=== PATIENT | female | born 1965 | race Caucasian/White ===

== ENCOUNTER 2017-10-12 07:38 | Emergency (ER) | payer BC ==
[2017-10-12] MEDS ORDERED: SODIUM CHLORIDE 0.9% 1,000 ML IV ONE (07:52)
--- NOTE | 2017-10-12 07:55 | ED Physician Documentation ---
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 She does see a email manager in [place] by Dr. Zachery Kline. She was last cardioverted 2 weeks ago. She is visiting the [place] for [place] and is boating here. She did consume alcohol last night est 4-5 drinks. Review of Systems Constitutional: denies: Fever, Chills, Myalgias Eyes: denies: Decreased vision Ears: denies: Ear pain Nose: denies: Rhinorrhea / runny nose, Congestion Throat: denies: Sore throat Cardiac: reports: Palpitations. denies: Chest pain / pressure Respiratory: denies: Dyspnea, Cough GI: denies: Abdominal Pain, Nausea, Vomiting, Constipation, Diarrhea : denies: Dysuria, Frequency Skin: denies: Rash Musculoskeletal: denies: Neck pain, Back pain, Extremity pain Neurologic: denies: Generalized weakness, Focal weakness, Numbness PD PAST MEDICAL HISTORY - Present Medications Home Medications: Ambulatory Orders Medication Instructions Recorded Confirmed Cholecalciferol (Vitamin D3) 1 tab PO DAILY 10/12/17 10/12/17 [Vitamin D3] Cream Base No.226 [Hrt Essential 1 appful TOP DAILY 10/12/17 10/12/17 Cream] Thyroid,Pork [Nature-Throid] 1 tab PO DAILY 10/12/17 10/12/17 - Allergies Allergies/Adverse Reactions: Allergies Allergy/AdvReac Type Severity Reaction Status Date / Time No Known Drug Allergies Allergy Verified 10/12/17 07:48 PD ED PE NORMAL - Vitals Vital signs reviewed: Yes (tachy and hypertensive ) - General General: Alert and oriented X 3, No acute distress, Well developed/nourished - HEENT HEENT: Atraumatic, PERRL, EOMI - Neck Neck: Supple, no meningeal sign, No bony TTP - Cardiac Cardiac: No murmur, Other (tachy to 135 well healed midline scar) - Respiratory Respiratory: No respiratory distress, Clear bilaterally - Abdomen Abdomen: Soft, Non tender - Back Back: No CVA TTP, No spinal TTP - Derm Derm: Normal color, Warm and dry, No rash - Extremities Extremities: No deformity, No edema - Neuro Neuro: Alert and oriented X 3, sprinkler tender 2-12 intact, No motor deficit, No sensory deficit, Normal speech Eye Opening: Spontaneous Motor: Obeys Commands Verbal: Oriented GCS Score: 15 - Psych Psych: Normal mood, Normal affect Results - Vitals Vitals: Vital Signs - 24 hr 10/12/17 10/12/17 07:43 09:53 Temperature 36.2 C L Heart Rate 138 H 77 Respiratory 16 14 Rate Blood Pressure 131/76 H 104/69 O2 Saturation 99 98 Oxygen O2 Source Room air - EKG (time done) 0747 Rate: Rate (enter#) (134) Rhythm: Sinus tachycardia Intervals: Wide QRS (IVCD) Ischemia: Non specific changes Compare to prior EKG: Old EKG unavailable Computer interpretation: Agree with computer 0934 Rate: Rate (enter#) (68) Rhythm: NSR Intervals: Wide QRS (IVCD) Ischemia: Non specific changes Compare to prior EKG: Changed from prior EKG (spt earlier today the rate has slowed.) Computer interpretation: Agree with computer - Labs Labs: Laboratory Tests 10/12/17 10/12/17 10/12/17 08:00 08:00 08:00 WBC 3.6 L RBC 4.03 L Hgb 13.5 Hct 38.6 MCV 95.8 MCH 33.4 H MCHC 34.9 RDW 12.7 Plt Count 219 MPV 7.9 Neut # 1.5 Lymph # 1.5 [place] # 0.5 Eos # 0.1 Baso # 0.0 Absolute Nucleated RBC 0.00 Nucleated RBC % 0.1 Sodium 136 Potassium 3.5 Chloride 103 Carbon Dioxide 21 Anion Gap 12.0 BUN 14 Creatinine 0.8 Estimated GFR (MDRD) 76 L Glucose 100 Calcium 8.9 Magnesium Total Bilirubin 0.7 AST 25 ALT 23 Alkaline Phosphatase 40 L Troponin I < 0.04 Total Protein 7.1 Albumin 4.1 Globulin 3.0 Albumin/Globulin Ratio 1.4 Lipase 26 TSH Urine Color Urine Clarity Urine pH Ur Specific [place] Urine Protein Urine Glucose (UA) Urine Ketones Urine Occult Blood Urine Nitrite Urine Bilirubin Urine Urobilinogen Ur Leukocyte Esterase Ur Microscopic Review Urine Culture Comments Ethyl Alcohol < 5.0 10/12/17 10/12/17 10/12/17 08:00 08:00 09:00 WBC RBC Hgb Hct MCV MCH MCHC RDW Plt Count MPV Neut # Lymph # [place] # Eos # Baso # Absolute Nucleated RBC Nucleated RBC % Sodium Potassium Chloride Carbon Dioxide Anion Gap BUN Creatinine Estimated GFR (MDRD) Glucose Calcium Magnesium 1.9 Total Bilirubin AST ALT Alkaline Phosphatase Troponin I Total Protein Albumin Globulin Albumin/Globulin Ratio Lipase TSH 2.50 Urine Color LIGHT YELLOW Urine Clarity CLEAR Urine pH 7.0 Ur Specific [place] <=1.005 Urine Protein NEGATIVE Urine Glucose (UA) NEGATIVE Urine Ketones NEGATIVE Urine Occult Blood NEGATIVE Urine Nitrite NEGATIVE Urine Bilirubin NEGATIVE Urine Urobilinogen 0.2 (NORMAL) Ur Leukocyte Esterase NEGATIVE Ur Microscopic Review NOT INDICATED Urine Culture Comments NOT INDICATED Ethyl Alcohol Procedures - IVC sono (time) 0750 Bedside IVC sono: IVC measures (cm) (1.08), IVC collapsed c insp (cm) (complete) , Dehydration (set 1.5 liter deficit) PD MEDICAL DECISION MAKING - ED course Complexity details: reviewed results, re-evaluated patient, considered differential, d/w patient ED course: 52-year-old female with a prior history of WPW and ablation has now developed an accessory pathway through scar tissue and this morning she had an episode of SVT. She had mild symptoms associated with this and on evaluation here in the emergency department she appeared mildly dehydrated on interrogation of the inferior vena cava. She was administered a liter of saline and 2 g of magnesium sulfate. We were preparing to do cardioversion on her after almost 2 hours in the emergency department and she spontaneously converted. Departure - Departure Disposition: 01 Home, Self Care Clinical Impression: SVT (supraventricular tachycardia) Condition: Stable Instructions: ED Tachycardia Pat PSVT Follow-Up: Zachery Christine MD [Physician No Access] - Discharge Date/Time: 10/12/17 10:05
[2017-10-12 08:14] LABS: BASOPHILS % (AUTO) 0.5 %; EOSINOPHILS # (AUTO) 0.1 10^3/uL (0.0-0.7); EOSINOPHILS % (AUTO) 2.1 %; HGB - HEMOGLOBIN 13.5 g/dL (12.0-16.0); LYMPHOCYTES # (AUTO) 1.5 10^3/uL (1.5-3.5); LYMPHOCYTES % (AUTO) 41.4 %; MEAN CORPUSCULAR HEMOGLOBIN 33.4 pg (27.0-31.0); MEAN CORPUSCULAR HGB CONC 34.9 g/dL (32.0-36.0); MEAN CORPUSCULAR VOLUME 95.8 fL (81.0-99.0); MEAN PLATELET VOLUME 7.9 fL (7.9-10.8); MONOCYTES # (AUTO) 0.5 10^3/uL (0.0-1.0); MONOCYTES % (AUTO) 13.9 %; NEUTROPHILS # (AUTO) 1.5 10^3/uL (1.5-6.6); NEUTROPHILS % (AUTO) 42.1 %; PLT - PLATELET COUNT 219 10^3/uL (130-450); RED BLOOD COUNT 4.03 10^6/uL (4.20-5.40); RED CELL DISTRIBUTION WIDTH 12.7 % (12.0-15.0); WHITE BLOOD COUNT 3.6 x10^3/uL (4.8-10.8)
[2017-10-12] MEDS ORDERED: MAGNESIUM SULFATE 2 GRAM 2 GM/50 ML BAG IV ONE (08:18)
[2017-10-12 08:33] LABS: ALBUMIN 4.1 g/dL (3.2-5.5); ALBUMIN/GLOBULIN RATIO 1.4 (1.0-2.2); ALKALINE PHOSPHATASE 40 IU/L (42-121); ALT ALANINE AMINOTRANSFERASE 23 IU/L (10-60); AST ASPARTATE AMINOTRANSFERASE 25 IU/L (10-42); BILIRUBIN,TOTAL 0.7 mg/dL (0.2-1.0); BUN - BLOOD UREA NITROGEN 14 mg/dL (6-20); CALCIUM 8.9 mg/dL (8.5-10.3); CARBON DIOXIDE - CO2 21 mmol/L (21-32); CHLORIDE 103 mmol/L (101-111); CREATININE 0.8 mg/dL (0.4-1.0); GFR - MDRD 76 (>89); GLUCOSE 100 mg/dL (70-100); LIPASE 26 U/L (22-51); SODIUM 136 mmol/L (135-145); TOTAL PROTEIN 7.1 g/dL (6.7-8.2)
[2017-10-12 09:04] LABS: BILIRUBIN,URINE NEGATIVE (NEGATIVE); GLUCOSE, URINE (UA) NEGATIVE (NEGATIVE); KETONES,URINE (UA) NEGATIVE (NEGATIVE); LEUKOCYTE ESTERASE, URINE NEGATIVE (NEGATIVE); NITRITE,URINE NEGATIVE (NEGATIVE); OCCULT BLOOD,URINE NEGATIVE (NEGATIVE); PROTEIN,URINE NEGATIVE (NEGATIVE); UROBILINOGEN,URINE 0.2 (NORMAL) E.U./dL (NORMAL)
[2017-10-12 09:06] LABS: CLARITY,URINE CLEAR (CLEAR)
[2017-10-12 09:54] VITALS: BP 104/69
== END 2017-10-12 10:05 | disposition home or self-care (01) ==
LOC: ED 07:38
DX: I47.1 Supraventricular tachycardia (principal); E86.0 Dehydration
CPT/HCPCS: 36415; 80053; 80320; 81001; 81003; 83690; 83735; 84443; 84484; 85025; 87086; 93005; 96374; 99283; 99284